=== PATIENT | female | born 1980 | race Caucasian/White ===

== ENCOUNTER 2020-09-13 04:34 | Emergency (ER) | payer OTHER | END 2020-09-13 05:43 | disposition home or self-care (01) | LOC: ER1 04:34 | DX: S50.02XA Contusion of left elbow, initial encounter (principal); E03.9 Hypothyroidism, unspecified; F17.210 Nicotine dependence, cigarettes, uncomplicated; X50.9XXA Other and unspecified overexertion or strenuous movements or postures, initial encounter; Z90.711 Acquired absence of uterus with remaining cervical stump | CPT/HCPCS: 73080; 73090; 99283 ==